=== PATIENT | male | born 1990 | race Caucasian/White ===

== ENCOUNTER 2018-01-29 06:23 | Emergency (ER) | payer OTHER ==
[2018-01-29 06:31] VITALS: RESP 18
[2018-01-29] MEDS ORDERED: KETOROLAC 30 MG/ML 1 ML VIAL IVP STA ×2 (06:35→07:32)
[2018-01-29] MEDS ORDERED: ONDANSETRON 4 MG/2 ML VIAL IVP STA (06:35)
[2018-01-29 07:08] LABS: Appearance,Urine Clear (Clear); Bilirubin,Urine Negative (Negative); Blood,Urine Large (Negative); Color,Urine Light Red; Glucose,Urine (UA) Negative (Negative); Ketones,Urine Negative (Negative); Leukocyte Esterase,Urine Negative (Negative); Mucus,Urine Rare /hpf; Protein,Urine 1+ (Negative); RBC,Urine >182 /hpf (0-5); Specific Gravity,Urine 1.021 (1.001-1.035); Squamous Epithelial Cell,Urine <1 /hpf (0-4); Urobilinogen,Urine <2.0 mg/dL (<2.0); WBC,Urine 4 /hpf (0-5)
[2018-01-29 07:12] LABS: Anion Gap 11 mmol/L; Blood Urea Nitrogen 16 mg/dL (9-20); Calcium 9.6 mg/dL (8.4-10.2); Carbon Dioxide 27 mmol/L (22-30); Chloride 104 mmol/L (98-107); Glucose 117 mg/dL (74-99); Sodium 142 mmol/L (137-145)
[2018-01-29 07:15] LABS: Potassium 4.2 mmol/L (3.5-5.1)
[2018-01-29 07:16] LABS: Basophils % (A) 0 %; Eosinophils % (A) 1 %; Lymphocytes # (A) 1.4 k/uL (1.0-4.8); Lymphocytes % (A) 17 %; MCH 30.3 pg (25.0-35.0); MCHC 34.7 g/dL (31.0-37.0); MCV 87.3 fL (80.0-100.0); Mean Platelet Volume 6.5; Monocytes # (A) 0.4 k/uL (0-1.0); Monocytes % (A) 5 %; Neutrophils # (A) 5.9 k/uL (1.3-7.7); Neutrophils % (A) 75 %; Platelet Count 226 k/uL (150-450); RBC 5.28 m/uL (4.30-5.90); RDW 12.4 % (11.5-15.5); WBC 7.9 k/uL (3.8-10.6)
--- NOTE | 2018-01-29 07:38 | ED ---
Abdominal Pain HPI - General Chief Complaint: Abdominal Pain Stated Complaint: abd pain,blood in urine Time Seen by Provider: 01/29/18 07:00 Source: patient, RN notes reviewed Mode of arrival: ambulatory Limitations: no limitations - History of Present Illness Initial Comments: This is a 27-year-old male with a benign past medical history states she had the onset around 4 AM this morning of sharp left lower quadrant abdominal pain that seemed to radiate to his left testicle and into his penis. He also notices urine was brown colored this morning. Patient states the pain was sharp 8-9/10 in severity when he got to the emergency department is down to about a 5. He had no nausea vomiting fevers chills sweats or other symptoms. He has no prior history kidney stones or family history of the same. No abdominal surgeries no trauma. MD Complaint: abdominal pain, flank pain - Related Data Previous Rx's Medication Instructions Recorded Ibuprofen 800 mg PO Q6HR PRN #20 tablet 01/29/18 Tamsulosin [Flomax] 0.4 mg PO DAILY #7 cap 01/29/18 Allergies Allergy/AdvReac Type Severity Reaction Status Date / Time No Known Allergies Allergy Verified 01/29/18 07:09 Review of Systems ROS Statement: Those systems with pertinent positive or pertinent negative responses have been documented in the HPI. ROS Other: All systems not noted in ROS Statement are negative. Past Medical History Past Medical History: No Reported History History of Any Multi-Drug Resistant Organisms: None Reported Past Surgical History: No Surgical Hx Reported Past Psychological History: No Psychological Hx Reported Smoking Status: Never smoker Past Alcohol Use History: Occasional Past Drug Use History: None Reported General Exam - General Exam Comments Initial Comments: This is a well developed well-nourished awake alert oriented 3 male Limitations: no limitations General appearance: alert, in no apparent distress Head exam: Present: atraumatic, normocephalic, normal inspection Eye exam: Present: normal appearance, PERRL, EOMI. Absent: scleral icterus, conjunctival injection, periorbital swelling ENT exam: Present: normal exam, mucous membranes moist Neck exam: Present: normal inspection. Absent: tenderness, meningismus, lymphadenopathy Respiratory exam: Present: normal lung sounds bilaterally. Absent: respiratory distress, wheezes, rales, rhonchi, stridor Cardiovascular Exam: Present: regular rate, normal rhythm, normal heart sounds. Absent: systolic murmur, diastolic murmur, rubs, gallop, clicks GI/Abdominal exam: Present: soft, normal bowel sounds. Absent: distended, tenderness, guarding, rebound, rigid, bruit, pulsatile mass, hernia exam: Present: normal inspection. Absent: testicular tenderness, scrotal swelling, circumcision Extremities exam: Present: normal inspection, full ROM, normal capillary refill. Absent: tenderness, pedal edema, joint swelling, calf tenderness Back exam: Present: normal inspection. Absent: tenderness, CVA tenderness (R), CVA tenderness (L), muscle spasm, paraspinal tenderness, vertebral tenderness Neurological exam: Present: alert, oriented X3, CN II-XII intact Psychiatric exam: Present: normal affect, normal mood Skin exam: Present: warm, dry, intact, normal color. Absent: rash Course Vital Signs 01/29/18 06:27 Temperature 97.2 F L Pulse Rate 59 L Respiratory 18 Rate Blood Pressure 127/85 O2 Sat by Pulse 99 Oximetry Medical Decision Making - Medical Decision Making I did reevaluate patient on several occasions he did get much improvement in his pain He is pain-free at this time. I did a long discussion with him regarding the findings patient will be discharged on appropriate medication he is advised to continue hydrating himself well follow-up with his doctor return when necessary - Lab Data Result diagrams: 01/29/18 06:40 01/29/18 06:40 Lab Results 01/29/18 01/29/18 01/29/18 Range/Units 06:40 06:40 06:40 WBC 7.9 (3.8-10.6) k/uL RBC 5.28 (4.30-5.90) m/uL Hgb 16.0 (13.0-17.5) gm/dL Hct 46.0 (39.0-53.0) % MCV 87.3 (80.0-100.0) fL MCH 30.3 (25.0-35.0) pg MCHC 34.7 (31.0-37.0) g/dL RDW 12.4 (11.5-15.5) % Plt Count 226 (150-450) k/uL Neutrophils % 75 % Lymphocytes % 17 % Monocytes % 5 % Eosinophils % 1 % Basophils % 0 % Neutrophils # 5.9 (1.3-7.7) k/uL Lymphocytes # 1.4 (1.0-4.8) k/uL Monocytes # 0.4 (0-1.0) k/uL Eosinophils # 0.0 (0-0.7) k/uL Basophils # 0.0 (0-0.2) k/uL Sodium 142 (137-145) mmol/L Potassium 4.2 (3.5-5.1) mmol/L Chloride 104 (98-107) mmol/L Carbon Dioxide 27 (22-30) mmol/L Anion Gap 11 mmol/L BUN 16 (9-20) mg/dL Creatinine 0.89 (0.66-1.25) mg/dL Est GFR (CKD-EPI)AfAm >90 (>60 ml/min/1.73 sqM) Est GFR (CKD-EPI)NonAf >90 (>60 ml/min/1.73 sqM) Glucose 117 H (74-99) mg/dL Calcium 9.6 (8.4-10.2) mg/dL Urine Color Light Red Urine Appearance Clear (Clear) Urine pH 6.0 (5.0-8.0) Ur Specific [place] 1.021 (1.001-1.035) Urine Protein 1+ H (Negative) Urine Glucose (UA) Negative (Negative) Urine Ketones Negative (Negative) Urine Blood Large H (Negative) Urine Nitrite Negative (Negative) Urine Bilirubin Negative (Negative) Urine Urobilinogen <2.0 (<2.0) mg/dL Ur Leukocyte Esterase Negative (Negative) Urine RBC >182 H (0-5) /hpf Urine WBC 4 (0-5) /hpf Ur Squamous Epith Cells <1 (0-4) /hpf Urine Mucus Rare H (None) /hpf - Radiology Data Radiology results: report reviewed (I did review the imaging and reports are is evidence of 3 mm stone in the proximal left ureter. No other significant findings), image reviewed Disposition Clinical Impression: Calcium ureterolithiasis, Renal colic on left side Disposition: HOME SELF-CARE Condition: Good Instructions: Kidney Stones (ED), Renal Colic (ED), Flank Pain (ED), How to Strain Your Urine (ED) Prescriptions: Ibuprofen 800 mg PO Q6HR PRN #20 tablet PRN Reason: Pain Tamsulosin [Flomax] 0.4 mg PO DAILY #7 cap Referrals: Binta Beasley DO [Primary Care Provider] - 1-2 days
--- NOTE | 2018-01-29 07:59 | CT ---
EXAMINATION TYPE: CT abdomen pelvis wo con DATE OF EXAM: 01/29/2018 COMPARISON: NONE INDICATION: Left sided flank pain DLP: 361.8 mGycm, Automated exposure control for dose reduction was used. CONTRAST: 0 mL of Omnipaque 350. Study performed without Oral Contrast TECHNIQUE: Axial images were obtained from above the diaphragm to the pubic rami in the axial plane a t 5 mm thick sections. Reconstructed images are reviewed on the computer in the coronal plane. FINDINGS: Limited CT sections are obtained the lung bases. The lung bases are clear. CT ABDOMEN: Liver: Normal Spleen: Normal Pancreas: Normal Adrenal glands: The adrenal glands are normal. Gallbladder: Normal Kidneys: No masses are evident. There is a mild left hydronephrosis. No cysts are present. Within th e proximal left ureter there is a 0.3 cm calcification causing obstruction. Series 3 image 70. Aorta: Normal Inferior vena cava: Normal. CT PELVIS: Loops of bowel within the abdomen and pelvis are normal. Studies performed without oral contrast limiting evaluation. Appendix: Normal as visualized. Urinary bladder: Normal. Genitourinary structures: Prostate appears unremarkable. Osseous structures: No suspicious lytic or sclerotic lesions. There is spondylolysis of L5. Mild grad e 1 spondylolisthesis of L5 anteriorly on S1 is present. Degenerative disc changes are present L5-S1. IMPRESSIONS: 1. 0.3 cm proximal left ureteral calcification with mild left hydronephrosis. 2. Spondylolysis of L5 is grade 1 spondylolisthesis of L5 anterior on S1.
[2018-01-29] MEDS ORDERED: TAMSULOSIN 0.4 MG CAP.ER.24H PO STA (08:17)
[2018-01-29 08:31] VITALS: BP 117/68; PULSE 60; TEMP 97.6
== END 2018-01-29 08:31 | disposition home or self-care (01) ==
LOC: EC 06:23
DX: N20.1 Calculus of ureter (principal)
CPT/HCPCS: 36415; 80048; 85025; 81001; 74176; 99284; 96374; 96375; J2405; J1885